=== PATIENT | male | born 1990 | race Caucasian/White ===

== ENCOUNTER 2020-09-29 10:41 | Emergency (ER) | payer OTHER | END 2020-09-29 14:53 | disposition home or self-care (01) | LOC: FER 10:41 | DX: S80.02XA Contusion of left knee, initial encounter (principal); W51.XXXA Accidental striking against or bumped into by another person, initial encounter; Y93.23 Activity, snow (alpine) (downhill) skiing, snowboarding, sledding, tobogganing and snow tubing; Y92.89 Other specified places as the place of occurrence of the external cause | CPT/HCPCS: 73560 ==